=== PATIENT | male | born 2000 | race Caucasian/White ===

== ENCOUNTER → 2022-08-02 | Outpatient (CLI) | payer OTHER | LOC: M PLAIMG 15:49 | PROVIDERS: ATTEND Physician Assistant Surgical | DX: M24.132 Other articular cartilage disorders, left wrist (principal) ==

== ENCOUNTER → 2022-10-11 | Outpatient (CLI) | payer OTHER | LOC: M SOG 09:34 | PROVIDERS: ATTEND Physician Assistant | DX: M25.532 Pain in left wrist (principal) ==

== ENCOUNTER 2023-02-08 06:50 | Day surgery (SDC) | payer OTHER ==
[~2023-02-08] VITALS: Ht 172.7 cm; Wt 85.5 kg
[~2023-02-08 06:50] MED LIST: IBUP-1022 PO; ceFAZolin SOD 2 GM in IV 1 EA IV ONE
[2023-02-08] MEDS ORDERED: LR 1,000 ML IV SCH (07:00)
[2023-02-08] MEDS ORDERED: propofoL 200 MG/20 ML VIAL As Ordered ONE (08:17)
[2023-02-08] MEDS ORDERED: LIDOCAINE 2% 100MG/5ML SDV (FOR ANES.) As Ordered ONE (08:17)
[2023-02-08] MEDS ORDERED: ACETAMINOPHEN 1000MG 100ML IV BAG As Ordered ONE (08:17)
[2023-02-08] MEDS ORDERED: ONDANSETRON 4MG 2ML VIAL As Ordered ONE (08:17)
[2023-02-08] MEDS ORDERED: KETOROLAC 60MG 2ML VIAL As Ordered ONE (08:17)
[2023-02-08] MEDS ORDERED: MIDAZOLAM INJ 2MG/2ML VIAL As Ordered ONE (08:18)
[2023-02-08] MEDS ORDERED: fentaNYL 100 MCG/2 ML INJECTION As Ordered ONE (08:18)
[2023-02-08] MEDS ORDERED: PERCOCET PO (10:42)
[2023-02-08] MEDS ORDERED: ONDANSETRON 4MG 2ML VIAL IV PRN (11:55)
[2023-02-08] MEDS ORDERED: MORPHINE 2 MG/ML 1ML VIAL IV PRN (11:55)
[2023-02-08] MEDS ORDERED: oxyCODONE 5MG TAB PO PRN (11:55)
[2023-02-08] MEDS ORDERED: fentaNYL 100 MCG/2 ML INJECTION IV PRN (11:55)
[2023-02-08 13:02] VITALS: BP 128/70; TEMP 97.5; O2SAT 98
== END 2023-02-08 13:14 | disposition home or self-care (01) ==
LOC: M SDC 06:50
PROVIDERS: ATTEND Orthopaedic Surgery Hand Surgery
DX: M24.132 Other articular cartilage disorders, left wrist (principal); M65.831 Other synovitis and tenosynovitis, right forearm
CPT/HCPCS: 29846; J0131; J0665; J1100; J1885; J2250; J2405; J3010